=== PATIENT | male | born 1955 | race Caucasian/White ===

== ENCOUNTER 2019-02-04 19:24 | Emergency (ER) | payer MEDICARE, MEDICAID ==
[2019-02-04] MEDS ORDERED: Tetracaine 0.5% OPTH.SOL 4 ML* 1 DROP BTL LEFT EYE ONE (19:25)
[2019-02-04 19:56] VITALS: BP 113/64
[2019-02-04] MEDS ORDERED: Fluorescein Sodium TOPICAL* 1 MG TEST STRIP OPHTHALMIC ONE (20:02)
[2019-02-04] MEDS ORDERED: Erythromycin OPTH OINT* APPLIC OINT LEFT EYE ONE (20:20)
--- NOTE | 2019-02-04 20:21 | UC ---
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 No problem with vision. - History of Current Complaint Chief Complaint: UCEye Stated Complaint: LT EYE COMPLAINT Time Seen by Provider: 02/04/19 20:01 Hx Obtained From: Patient Onset/Duration: Sudden Onset, Lasting Hours - 7, Still Present Timing: Constant Severity Initially: Mild Severity Currently: Mild Pain Intensity: 0 Character: Foreign Body Sensation Aggravating Factor(s): Blinking Alleviating Factor(s): Nothing Associated Signs And Symptoms: Negative: Photophobia, Drainage (Clear), Drainage (Purulent), Vision Impairment Bilateral - Risk Factors Penetrating Injury Risk Factor: Negative Globe Rupture Risk Factors: Negative - Allergies/Home Medications Allergies/Adverse Reactions: Allergies Allergy/AdvReac Type Severity Reaction Status Date / Time No Known Allergies Allergy Verified 02/04/19 19:56 Home Medications: Home Medications Sertraline* [Zoloft*] 200 mg PO DAILY 02/04/19 [History Confirmed 02/04/19] metFORMIN* [Glucophage 500 MG TAB *] 500 mg PO BID 02/04/19 [History Confirmed 02/04/19] PMH/Surg Hx/FS Hx/Imm Hx Endocrine History: Diabetes Psychological History: Depression - Surgical History Surgical History: None - Family History Known Family History: Positive: Diabetes - Social History Occupation: Retired Lives: With Family Alcohol Use: None Substance Use Type: None Smoking Status (MU): Never Smoked Tobacco Review of Systems All Other Systems Reviewed And Are Negative: Yes Eyes: Positive: Other - FB sensation OD Physical Exam Triage Information Reviewed: Yes Appearance: Well-Appearing, No Pain Distress, Well-Nourished Vital Signs: Initial Vital Signs Temp 97.6 F 02/04/19 19:51 Pulse 59 02/04/19 19:51 Resp 18 02/04/19 19:51 BP 113/64 02/04/19 19:51 Pulse Ox 98 02/04/19 19:51 Vital Signs Reviewed: Yes Eyes: Positive: Other: - FB present in left upper cornea. Neck exam: Normal Respiratory Exam: Normal Cardiovascular Exam: Normal Musculoskeletal Exam: Normal Neurological Exam: Normal Psychological Exam: Normal Skin Exam: Normal Procedures - Eye Procedure Left Alcaine Drops Administered: Yes Eye FB Removal: removal w/ needle - FB removed. Residual rust ring. No other area of fluorescein uptake. Antibiotic Ointment/Drps Admin: left eye Eye Complaint Course/Dx - Differential Dx/Diagnosis Differential Diagnosis/HQI/PQRI: Corneal Abrasion, Foreign Body, Penetrating Injury Provider Diagnosis: Corneal foreign body, Corneal rust ring of left eye Discharge - Sign-Out/Discharge Documenting (check all that apply): Patient Departure All imaging exams completed and their final reports reviewed: No Studies - Discharge Plan Condition: Stable Disposition: HOME Patient Education Materials: Eye Foreign Body (ED) Referrals: Dragan Shelton, [Primary Care Provider] - Additional Instructions: EYE OINTMENT USE: Wash hands. Place 1/4" strip across tip of finger. Pull lower lid down with the index finger and stabilize the ointment finger with the middle finger and scrape the ointment off on the lid. Pull the lid out and let go as you look down. Call Bala Sotelo MD tomorrow to be seen to get the rust ring out. - Billing Disposition and Condition Condition: STABLE Disposition: Home
== END 2019-02-04 20:44 | disposition home or self-care (01) ==
LOC: UCCORT 19:24
DX: T15.02XA Foreign body in cornea, left eye, initial encounter (principal); X58.XXXA Exposure to other specified factors, initial encounter; Y93.89 Activity, other specified; Y92.9 Unspecified place or not applicable; E11.9 Type 2 diabetes mellitus without complications; Z79.84 Long term (current) use of oral hypoglycemic drugs; F32.9 Major depressive disorder, single episode, unspecified
CPT/HCPCS: 65220; 99202; A9270-GY; G0463